=== PATIENT | female | born 1980 | race Asian ===

== ENCOUNTER 2017-11-18 05:35 | Day surgery (SDC) | payer OTHER ==
[2017-11-15 12:09] LABS: MEAN CORPUSCULAR HEMOGLOBIN 20.6 PG (27.0-31.0); MEAN CORPUSCULAR HGB CONC 32.4 % (33.0-36.5); MEAN CORPUSCULAR VOLUME 63.7 FL (78-98); MEAN PLATELET VOLUME 7.8 FL (7.4-10.4); PRE OP HEMATOCRIT 39.2 % (35.0-45.0); PRE OP HEMOGLOBIN 12.7 g/dL (12.0-16.0); PRE OP PLATELET COUNT 376 X10'3 (140-440); RED BLOOD COUNT 6.16 X10'6 (4.20-5.60); RED CELL DISTRIBUTION WIDTH 15.9 % (11.5-14.5)
[2017-11-15 12:22] LABS: HCG SERUM QL NEGATIVE
[2017-11-15 12:23] LABS: ALBUMIN 3.8 G/DL (3.4-5.0); ALBUMIN/GLOBULIN RATIO 0.8 (1.1-1.5); ALKALINE PHOSPHATASE 70 IU/L (46-116); BLOOD UREA NITROGEN 7 MG/DL (7-18); BUN/CREATININE RATIO 9.3 (6.6-38.0); CALCIUM 9.1 MG/DL (8.5-10.1); CHLORIDE 103 MMOL/L (99-107); CREATININE 0.75 MG/DL (0.40-0.90); PRE OP ALT 39 U/L (30-65); PRE OP ANION GAP 9 (8-16); PRE OP AST 23 U/L (10-37); PRE OP BILIRUB, TOTAL 0.5 MG/DL (0.0-1.0); PRE OP GLUCOSE 104 MG/DL (70-104); PRE OP POTASSIUM 3.4 MMOL/L (3.4-5.1); PRE OP SODIUM 141 MMOL/L (135-145); TOTAL CARBON DIOXIDE 29.1 MMOL/L (24-32); TOTAL PROTEIN 8.3 G/DL (6.4-8.2); eGFR 87 ML/MIN
[2017-11-15 12:51] LABS: ANISOCYTOSIS 3+; MICROCYTOSIS 2+; PLATELET ESTIMATE NORMAL; TOTAL CELLS COUNTED 100
[2017-11-15 12:52] LABS: HYPOCHROMASIA 1+; TARGET CELLS 2+
[~2017-11-18] VITALS: Ht 157.5 cm; Wt 59.4 kg
[2017-11-18] VITALS (8 sets, daily range): BP systolic 123–137; BP diastolic 73–86
[~2017-11-18 05:35] MED LIST: ACET-75 PO; HYDR-3965 PO; IBUP-2264; SUMA25TA35 PO; TRAM50TA2 PO; famotidine 20mg tablet PO ONE; ringers solution, lacted 1,000 ML IV SCH
[2017-11-18] MEDS ORDERED: MONO LINYAH (05:57)
[2017-11-18] MEDS ORDERED: LIDOcaine 1% (10mg/ml) 2ml vial ONE (06:05)
[2017-11-18] MEDS ORDERED: BUPIVAcaine 0.5% inj/PF 30 ML ONE (06:39)
[2017-11-18] MEDS ORDERED: sevoflurane 250ml liquid IH ONE (07:20)
[2017-11-18] MEDS ORDERED: fentaNYL/PF 50MCG/1 ML 2ML syringe ONE (07:23)
[2017-11-18] MEDS ORDERED: midazolam 2 mg/2 ml injection ONE (07:23)
[2017-11-18] MEDS ORDERED: LIDOcaine 2% (20mg/ml) 5ml vial ONE (07:33)
[2017-11-18] MEDS ORDERED: propofol inj 20 ML IV ONE (07:33)
[2017-11-18] MEDS ORDERED: dexamethasone sod phosphate 4mg/ml inj. ONE (07:33)
[2017-11-18] MEDS ORDERED: rocuronium 10mg/ml inj IV ONE (07:33)
[2017-11-18] MEDS ORDERED: ringers solution, lacted 1,000 ML IV SCH (07:51)
[2017-11-18] MEDS ORDERED: meperidine/PF 25mg/ml syringe IV PRN ×2 (07:55)
[2017-11-18] MEDS ORDERED: ondansetron/PF 4mg/2ml inj IV PRN (07:55)
[2017-11-18] MEDS ORDERED: proCHLORperazine 10 MG/2 ml inj IV PRN (07:55)
[2017-11-18] MEDS ORDERED: glycopyrrolate 0.2mg/ml inj ONE (07:57)
[2017-11-18] MEDS ORDERED: ondansetron/PF 4mg/2ml inj ONE (07:57)
[2017-11-18] MEDS ORDERED: ketorolac trometh. 30mg/ml inj. ONE (07:57)
[2017-11-18] MEDS ORDERED: neostigmine methylsulfate 1 MG/ML 10ml vial ONE (07:57)
[2017-11-18] MEDS ORDERED: BUPIVAcaine 0.5% inj/PF 30 ml vial IJ ONE (07:59)
[2017-11-18] MEDS: meperidine/PF 25mg/ml syringe IV PRN ×2 (08:41→08:48)
== END 2017-11-18 09:15 | disposition home or self-care (01) ==
LOC: PAS 05:35
PROVIDERS: ATTEND Specialist
DX: N83.8 Other noninflammatory disorders of ovary, fallopian tube and broad ligament (principal); N94.6 Dysmenorrhea, unspecified; N95.0 Postmenopausal bleeding; G43.909 Migraine, unspecified, not intractable, without status migrainosus; Z91.013 Allergy to seafood; Z98.890 Other specified postprocedural states; Z88.3 Allergy status to other anti-infective agents; Z79.899 Other long term (current) drug therapy
CPT/HCPCS: 36415; 58662; 80053; 84703; 85025; 86885; 86900; 86901; J1100; J1885; J2001; J2175; J2250; J2405; J2704; J2710; J3010; J3490; J7120; A7000

== ENCOUNTER 2017-12-10 19:13 | Emergency (ER) | payer OTHER ==
[~2017-12-10] VITALS: Ht 157.5 cm; Wt 62.0 kg
[~2017-12-10 19:13] MED LIST changes: +MONO LINYAH; -SUMA25TA35 PO; -famotidine 20mg tablet PO ONE; -ringers solution, lacted 1,000 ML IV SCH
[2017-12-10] MEDS ORDERED: ketorolac trometh inj. 60 MG/2 ML VIAL IM ONE (19:45)
[2017-12-10 19:57] LABS: CLARITY,URINE CLEAR (Clear); COLOR,URINE YELLOW (Yellow); GLUCOSE, URINE NEGATIVE (Neg); KETONES,URINE NEGATIVE (Neg); LEUKOCYTE ESTERASE ,URINE NEGATIVE (Neg); NITRITES, URINE NEGATIVE (Neg); OCCULT BLOOD,URINE TRACE-LYSED (Neg); PH,URINE 6.5 (4.8-8.0); PROTEIN,URINE NEGATIVE (Neg); UROBILINOGEN,URINE 0.2 E.U/dL (0.2-1.0)
[2017-12-10 20:02] LABS: UA COLLECTION TYPE CLN CATCH MIDSTREAM
[2017-12-10 20:04] LABS: BACTERIA,URINE FEW /HPF (Neg); RBC,URINE 0-2 /HPF (0-2); WBC,URINE 0-4 /HPF (0-4)
[2017-12-10 20:05] LABS: SQUAMOUS EPITHELIAL CELL,UR MODERATE /LPF (FEW)
[2017-12-10] MEDS ORDERED: CEPH500C5 PO (20:07)
[2017-12-10 20:14] VITALS: BP 136/81
== END 2017-12-10 20:15 | disposition home or self-care (01) ==
LOC: ER 19:14
DX: G89.29 Other chronic pain (principal); R10.30 Lower abdominal pain, unspecified; Z91.013 Allergy to seafood; Z79.899 Other long term (current) drug therapy
CPT/HCPCS: 81001; 96372; 99283; J1885

== ENCOUNTER 2018-05-06 19:48 | Emergency (ER) | payer OTHER ==
[~2018-05-06] VITALS: Ht 157.5 cm; Wt 62.5 kg
[~2018-05-06 19:48] MED LIST changes: +CEPH500C5 PO
[2018-05-06 19:55] VITALS: BP 135/70
[2018-05-06] MEDS ORDERED: PHEN-716 PO (20:37)
[2018-05-06] MEDS ORDERED: HYDR-3965 PO (20:37)
[2018-05-06 21:09] LABS: URINE HCG NEGATIVE (NEG)
[2018-05-06 21:16] LABS: CLARITY,URINE SLIGHTLY CLOUDY (Clear); COLOR,URINE YELLOW (Yellow); GLUCOSE, URINE NEGATIVE (Neg); KETONES,URINE NEGATIVE (Neg); LEUKOCYTE ESTERASE ,URINE SMALL (Neg); NITRITES, URINE NEGATIVE (Neg); OCCULT BLOOD,URINE NEGATIVE (Neg); PROTEIN,URINE NEGATIVE (Neg); UA COLLECTION TYPE CLN CATCH MIDSTREAM; UROBILINOGEN,URINE 0.2 E.U/dL (0.2-1.0)
[2018-05-06 21:56] LABS: BACTERIA,URINE FEW /HPF (Neg); RBC,URINE NONE SEEN /HPF (0-2); SQUAMOUS EPITHELIAL CELL,UR FEW /LPF (FEW)
== END 2018-05-06 21:58 | disposition home or self-care (01) ==
LOC: ER 19:49
DX: R10.30 Lower abdominal pain, unspecified (principal); Z88.8 Allergy status to other drugs, medicaments and biological substances; Z91.013 Allergy to seafood
CPT/HCPCS: 81001; 81025; 87088; 99284

== ENCOUNTER 2019-05-31 08:41 | Outpatient (CLI) | payer OTHER ==
[~2019-05-31 08:41] MED LIST changes: -CEPH500C5 PO; +PHEN-716 PO
[2019-05-31 09:32] LABS: CLARITY,URINE CLOUDY (Clear); COLOR,URINE YELLOW (Yellow); GLUCOSE, URINE NEGATIVE (Neg); KETONES,URINE NEGATIVE (Neg); LEUKOCYTE ESTERASE ,URINE NEGATIVE (Neg); NITRITES, URINE NEGATIVE (Neg); OCCULT BLOOD,URINE NEGATIVE (Neg); PH,URINE 6.5 (4.8-8.0); PROTEIN,URINE TRACE mg/dl (Neg); UA COLLECTION TYPE CLN CATCH MIDSTREAM; UROBILINOGEN,URINE 0.2 E.U/dL (0.2-1.0)
[2019-05-31 09:33] LABS: WHITE BLOOD COUNT 8.9 X10'3 (4.5-11.0)
[2019-05-31 09:34] LABS: HEMATOCRIT 36.3 % (35.0-45.0); HEMOGLOBIN 12.3 g/dl (12.0-16.0); MEAN CORPUSCULAR HGB CONC 33.8 g/dL (33.0-36.5); MEAN PLATELET VOLUME 7.3 FL (7.4-10.4); PLATELET COUNT 432 X10'3 (140-440); RED BLOOD COUNT 5.85 X10'6 (4.20-5.60); RED CELL DISTRIBUTION WIDTH 15.9 % (11.5-14.5)
[2019-05-31 09:38] LABS: BACTERIA,URINE 2+ /HPF (Neg); MUCUS STRANDS MODERATE /LPF (Neg); RBC,URINE 0-2 /HPF (0-2); SQUAMOUS EPITHELIAL CELL,UR MODERATE /LPF (FEW); WBC,URINE 0-4 /HPF (0-4)
[2019-05-31 09:52] LABS: ALANINE AMINOTRANSFERASE 54 U/L (12-78); ALBUMIN 3.3 G/DL (3.4-5.0); ALBUMIN/GLOBULIN RATIO 0.7 (1.1-1.5); ALKALINE PHOSPHATASE 105 IU/L (46-116); ANION GAP 6 (8-16); ASPARTATE AMINO TRANSFERASE 20 U/L (10-37); BILIRUBIN,TOTAL 0.4 MG/DL (0.1-1.0); BLOOD UREA NITROGEN 15 MG/DL (7-18); BUN/CREATININE RATIO 17.6 (6.6-38.0); CALCIUM 8.7 MG/DL (8.5-10.1); CHLORIDE 102 MMOL/L (99-107); CHOLESTEROL 266 MG/DL (0-200); CREATININE 0.85 MG/DL (0.40-0.90); GLUCOSE 74 MG/DL (70-104); HDL CHOLESTEROL 66 MG/DL (35-60); LDL CHOLESTEROL 184 MG/DL (50-100); POTASSIUM 4.4 MMOL/L (3.5-5.1); SODIUM 136 MMOL/L (135-145); TOTAL CARBON DIOXIDE 28.4 MMOL/L (24-32); TOTAL PROTEIN 7.8 G/DL (6.4-8.2); TRIGLYCERIDES 116 MG/DL (20-135); eGFR 74 ML/MIN
[2019-05-31 10:09] LABS: TOTAL CELLS COUNTED 100
[2019-05-31 10:10] LABS: HYPOCHROMASIA 1+; MICROCYTOSIS 2+; PLATELET ESTIMATE NORMAL; TARGET CELLS 2+
[2019-05-31 10:11] LABS: SCHISTOCYTES FEW
== END 2019-05-31 23:59 | disposition home or self-care (01) ==
LOC: LAB 08:41
DX: N80.9 Endometriosis, unspecified (principal); R53.83 Other fatigue; Z76.89 Persons encountering health services in other specified circumstances; Z87.891 Personal history of nicotine dependence
CPT/HCPCS: 36415; 80053; 80061; 81001; 84439; 84443; 85025

== ENCOUNTER 2019-06-27 06:00 | Day surgery (SDC) | payer OTHER ==
[~2019-06-27] VITALS: Ht 152.4 cm; Wt 63.6 kg
[~2019-06-27 06:00] MED LIST changes: -IBUP-2264; +IBUP-2697
[2019-06-27 06:08] VITALS: BP 126/78
[2019-06-27] MEDS ORDERED: fentaNYL/PF 50MCG/1 ML 2ML syringe ONE (06:14)
[2019-06-27] MEDS ORDERED: MIDAZolam 5mg/5ml vial ONE (06:15)
[2019-06-27] MEDS ORDERED: ELAG150T PO (06:28)
[2019-06-27] MEDS ORDERED: BACL10TA PO (06:29)
[2019-06-27] MEDS ORDERED: PENT100C9 PO (06:29)
[2019-06-27] MEDS ORDERED: IMIP25TA7 PO (06:31)
[2019-06-27 07:46] VITALS: BP 110/81
[2019-06-27 07:56] VITALS: BP 107/40
[2019-06-27 08:06] VITALS: BP 104/70
[2019-06-27 08:16] VITALS: BP 109/74
== END 2019-06-27 08:22 | disposition home or self-care (01) ==
LOC: GI LAB 06:00
PROVIDERS: ATTEND Internal Medicine Gastroenterology
DX: K62.89 Other specified diseases of anus and rectum (principal)
CPT/HCPCS: 45380; 99152; J2250; J3010; J7040; 99153

== ENCOUNTER 2019-08-02 15:16 | Emergency (ER) | payer OTHER ==
[~2019-08-02] VITALS: Ht 152.4 cm; Wt 65.5 kg
[~2019-08-02 15:16] MED LIST changes: -ACET-75 PO; +BACL10TA PO; +ELAG150T PO; +IMIP25TA7 PO; -MONO LINYAH; +PENT100C9 PO; -PHEN-716 PO; -TRAM50TA2 PO
[2019-08-02 16:26] LABS: BASOPHILS # (AUTO) 0.1 X10'3 (0-0.2); BASOPHILS % (AUTO) 0.8 % (0-1); EOSINOPHILS # (AUTO) 0.3 X10'3 (0-0.9); EOSINOPHILS % (AUTO) 2.7 % (0-6); HEMATOCRIT 37.7 % (35.0-45.0); HEMOGLOBIN 12.7 g/dl (12.0-16.0); LYMPHOCYTES # (AUTO) 3.5 X10'3 (1.1-4.8); MEAN CORPUSCULAR HEMOGLOBIN 20.3 PG (27.0-31.0); MEAN CORPUSCULAR HGB CONC 33.7 g/dL (33.0-36.5); MEAN CORPUSCULAR VOLUME 60.2 FL (78-98); MEAN PLATELET VOLUME 8.6 FL (7.4-10.4); MONOCYTES # (AUTO) 0.5 X10'3 (0-0.9); MONOCYTES % (AUTO) 5.7 % (2-12); NEUTROPHILS # (AUTO) 4.9 X10'3 (1.8-7.7); NEUTROPHILS % (AUTO) 52.8 % (42-75); PLATELET COUNT 405 X10'3 (140-440); RED BLOOD COUNT 6.26 X10'6 (4.20-5.60); RED CELL DISTRIBUTION WIDTH 15.7 % (11.5-14.5); WHITE BLOOD COUNT 9.3 X10'3 (4.5-11.0)
[2019-08-02 16:51] LABS: ALANINE AMINOTRANSFERASE 75 U/L (12-78); ALBUMIN 3.8 G/DL (3.4-5.0); ALBUMIN/GLOBULIN RATIO 0.8 (1.1-1.5); ALKALINE PHOSPHATASE 122 IU/L (46-116); ANION GAP 9 (8-16); ASPARTATE AMINO TRANSFERASE 35 U/L (10-37); BILIRUBIN,TOTAL 0.3 MG/DL (0.1-1.0); BLOOD UREA NITROGEN 13 MG/DL (7-18); BUN/CREATININE RATIO 16.5 (6.6-38.0); CALCIUM 9.3 MG/DL (8.5-10.1); CHLORIDE 103 MMOL/L (99-107); CREATININE 0.79 MG/DL (0.40-0.90); GLUCOSE 111 MG/DL (70-104); LIPASE 115 U/L (73-393); PLATELET ESTIMATE NORMAL; POTASSIUM 3.7 MMOL/L (3.5-5.1); SODIUM 143 MMOL/L (135-145); TOTAL CARBON DIOXIDE 31.2 MMOL/L (24-32); TOTAL PROTEIN 8.5 G/DL (6.4-8.2); eGFR 81 ML/MIN
[2019-08-02 16:57] LABS: ANISOCYTOSIS 1+; MICROCYTOSIS 2+; POIKILOCYTOSIS 1+; POLYCHROMASIA 1+
[2019-08-02 16:58] LABS: SCHISTOCYTES 1+; SPHEROCYTES 1+; STOMATOCYTES 1+; TARGET CELLS 2+
[2019-08-02 17:11] LABS: URINE HCG NEGATIVE (NEG)
[2019-08-02 17:12] LABS: GLUCOSE, URINE NEGATIVE (Neg); KETONES,URINE NEGATIVE (Neg); LEUKOCYTE ESTERASE ,URINE NEGATIVE (Neg); NITRITES, URINE NEGATIVE (Neg); OCCULT BLOOD,URINE NEGATIVE (Neg); PROTEIN,URINE NEGATIVE (Neg); UROBILINOGEN,URINE 0.2 E.U/dL (0.2-1.0)
[2019-08-02 17:14] LABS: CLARITY,URINE CLEAR (Clear); COLOR,URINE YELLOW (Yellow); UA COLLECTION TYPE CLN CATCH MIDSTREAM
[2019-08-02 17:47] VITALS: BP 120/81
== END 2019-08-02 17:48 | disposition home or self-care (01) ==
LOC: ER 15:16
DX: R10.30 Lower abdominal pain, unspecified (principal); G89.29 Other chronic pain; Z91.013 Allergy to seafood; Z88.8 Allergy status to other drugs, medicaments and biological substances; Z79.899 Other long term (current) drug therapy
CPT/HCPCS: 36415; 80053; 81003; 81025; 83690; 85025; 99283

== ENCOUNTER 2019-08-24 10:52 | Outpatient (CLI) | payer OTHER ==
[2019-08-24 14:28] LABS: OCCULT BLOOD STOOL NEGATIVE (Neg)
== END 2019-08-24 23:59 | disposition home or self-care (01) ==
LOC: LAB 10:52
PROVIDERS: ATTEND Internal Medicine Gastroenterology
DX: K92.2 Gastrointestinal hemorrhage, unspecified (principal)
CPT/HCPCS: 82272

== ENCOUNTER 2019-10-19 09:42 | Outpatient (CLI) | payer OTHER | END 2019-10-21 23:59 | disposition home or self-care (01) | LOC: RAD 09:42 | PROVIDERS: ATTEND Family Medicine | DX: G62.9 Polyneuropathy, unspecified (principal) | CPT/HCPCS: 72110; 72220 ==

== ENCOUNTER 2019-12-03 09:23 | Outpatient (CLI) | payer OTHER ==
[2019-12-03 10:06] LABS: BASOPHILS # (AUTO) 0.1 X10'3 (0-0.2); BASOPHILS % (AUTO) 1.8 % (0-1); EOSINOPHILS # (AUTO) 0.2 X10'3 (0-0.9); EOSINOPHILS % (AUTO) 2.1 % (0-6); HEMATOCRIT 40.2 % (35.0-45.0); HEMOGLOBIN 13.4 g/dl (12.0-16.0); LYMPHOCYTES # (AUTO) 1.2 X10'3 (1.1-4.8); LYMPHOCYTES % (AUTO) 15.6 % (21-51); MEAN CORPUSCULAR HEMOGLOBIN 19.7 PG (27.0-31.0); MEAN CORPUSCULAR HGB CONC 33.4 g/dL (33.0-36.5); MEAN PLATELET VOLUME 8.5 FL (7.4-10.4); MONOCYTES # (AUTO) 0.9 X10'3 (0-0.9); MONOCYTES % (AUTO) 11.4 % (2-12); NEUTROPHILS # (AUTO) 5.3 X10'3 (1.8-7.7); NEUTROPHILS % (AUTO) 69.1 % (42-75); PLATELET COUNT 414 X10'3 (140-440); RED BLOOD COUNT 6.82 X10'6 (4.20-5.60); RED CELL DISTRIBUTION WIDTH 16.4 % (11.5-14.5); WHITE BLOOD COUNT 7.7 X10'3 (4.5-11.0)
[2019-12-03 11:16] LABS: TOTAL CELLS COUNTED 100
[2019-12-03 11:17] LABS: ANISOCYTOSIS 1+; PLATELET ESTIMATE NORMAL
[2019-12-03 11:18] LABS: MICROCYTOSIS 2+; POLYCHROMASIA 1+; TARGET CELLS 1+
== END 2019-12-03 23:59 | disposition home or self-care (01) ==
LOC: LAB 09:23
PROVIDERS: ATTEND Family Medicine
DX: G62.9 Polyneuropathy, unspecified (principal); E03.9 Hypothyroidism, unspecified
CPT/HCPCS: 82607; 82746; 83540; 83550; 84439; 84443; 85025

== ENCOUNTER 2020-04-08 10:14 | Outpatient (CLI) | payer OTHER ==
[2020-04-08 10:52] LABS: BASOPHILS # (AUTO) 0.1 X10'3 (0-0.2); BASOPHILS % (AUTO) 1.1 % (0-1); EOSINOPHILS # (AUTO) 0.2 X10'3 (0-0.9); EOSINOPHILS % (AUTO) 2.5 % (0-6); HEMATOCRIT 39.5 % (35.0-45.0); HEMOGLOBIN 13.2 g/dl (12.0-16.0); LYMPHOCYTES # (AUTO) 2.8 X10'3 (1.1-4.8); LYMPHOCYTES % (AUTO) 28.6 % (21-51); MEAN CORPUSCULAR HEMOGLOBIN 20.3 PG (27.0-31.0); MEAN CORPUSCULAR HGB CONC 33.6 g/dL (33.0-36.5); MEAN CORPUSCULAR VOLUME 60.5 FL (78-98); MEAN PLATELET VOLUME 7.4 FL (7.4-10.4); MONOCYTES # (AUTO) 0.7 X10'3 (0-0.9); MONOCYTES % (AUTO) 7.1 % (2-12); NEUTROPHILS # (AUTO) 5.9 X10'3 (1.8-7.7); NEUTROPHILS % (AUTO) 60.7 % (42-75); PLATELET COUNT 426 X10'3 (140-440); RED BLOOD COUNT 6.52 X10'6 (4.20-5.60); RED CELL DISTRIBUTION WIDTH 16.1 % (11.5-14.5); WHITE BLOOD COUNT 9.7 X10'3 (4.5-11.0)
[2020-04-08 10:58] LABS: CLARITY,URINE CLEAR (Clear); COLOR,URINE YELLOW (Yellow); GLUCOSE, URINE NEGATIVE (Neg); KETONES,URINE NEGATIVE (Neg); LEUKOCYTE ESTERASE ,URINE NEGATIVE (Neg); NITRITES, URINE NEGATIVE (Neg); OCCULT BLOOD,URINE NEGATIVE (Neg); PH,URINE 7.5 (4.8-8.0); PROTEIN,URINE NEGATIVE (Neg); UROBILINOGEN,URINE 0.2 E.U/dL (0.2-1.0)
[2020-04-08 11:03] LABS: UA COLLECTION TYPE CLN CATCH MIDSTREAM
[2020-04-08 11:12] LABS: ALANINE AMINOTRANSFERASE 69 U/L (12-78); ALBUMIN 4.1 G/DL (3.4-5.0); ALBUMIN/GLOBULIN RATIO 0.9 (1.1-1.5); ALKALINE PHOSPHATASE 110 IU/L (46-116); ANION GAP 10 (8-16); ASPARTATE AMINO TRANSFERASE 36 U/L (10-37); BILIRUBIN,TOTAL 0.5 MG/DL (0.1-1.0); BLOOD UREA NITROGEN 10 MG/DL (7-18); BUN/CREATININE RATIO 11.6 (6.6-38.0); CALCIUM 9.5 MG/DL (8.5-10.1); CHLORIDE 99 MMOL/L (99-107); CHOL/HDL RATIO 3.9 (0.00-4.99); CHOLESTEROL 270 MG/DL (0-200); CREATININE 0.86 MG/DL (0.40-0.90); GLUCOSE 98 MG/DL (70-104); HDL CHOLESTEROL 70 MG/DL (35-60); LDL CHOLESTEROL 167 MG/DL (50-100); POTASSIUM 4.1 MMOL/L (3.5-5.1); SODIUM 137 MMOL/L (135-145); TOTAL PROTEIN 8.7 G/DL (6.4-8.2); TRIGLYCERIDES 199 MG/DL (20-135); eGFR 73 ML/MIN
[2020-04-08 11:24] LABS: RHEUM FACTOR QUAL REFLEX TITER NEGATIVE (Neg)
[2020-04-08 11:32] LABS: LARGE PLATELETS FEW; PLATELET ESTIMATE NORMAL; POLYCHROMASIA 1+
[2020-04-08 11:33] LABS: ANISOCYTOSIS 1+; HYPOCHROMASIA 2+; MICROCYTOSIS 2+; TARGET CELLS 1+
== END 2020-04-08 23:59 | disposition home or self-care (01) ==
LOC: LAB 10:14
PROVIDERS: ATTEND Family Medicine
DX: E03.9 Hypothyroidism, unspecified (principal); R10.2 Pelvic and perineal pain
CPT/HCPCS: 80053; 80061; 81003; 84439; 84443; 85025; 85651; 86038; 86430

== ENCOUNTER 2020-04-09 11:03 | Outpatient (CLI) | payer OTHER ==
[2020-04-09 11:58] LABS: % IRON SATURATION 35 % (11-46); IRON 106 UG/DL (49-151); TOTAL IRON BINDING CAPACITY 306 UG/DL (259-388)
== END 2020-04-09 23:59 | disposition home or self-care (01) ==
LOC: LAB 11:03
PROVIDERS: ATTEND Family Medicine
DX: E61.1 Iron deficiency (principal)
CPT/HCPCS: 36415; 83540; 83550

== ENCOUNTER 2021-01-08 12:53 | Emergency (ER) | payer MEDICAID ==
[~2021-01-08] VITALS: Ht 157.5 cm; Wt 68.2 kg
[2021-01-08 13:28] VITALS: BP 132/75
[2021-01-08 13:58] LABS: HEMOGLOBIN 11.9 g/dl (12.0-16.0); MEAN CORPUSCULAR HEMOGLOBIN 20.5 PG (27.0-31.0); RED BLOOD COUNT 5.78 X10'6 (4.20-5.60)
[2021-01-08 14:00] LABS: MEAN CORPUSCULAR HGB CONC 32.9 g/dL (33.0-36.5); MEAN CORPUSCULAR VOLUME 62.4 FL (78-98); MEAN PLATELET VOLUME 7.3 FL (7.4-10.4); PLATELET COUNT 480 X10'3 (140-440); RED CELL DISTRIBUTION WIDTH 17.5 % (11.5-14.5)
[2021-01-08 14:10] LABS: ALANINE AMINOTRANSFERASE 42 U/L (12-78); ALBUMIN 3.8 G/DL (3.4-5.0); ALBUMIN/GLOBULIN RATIO 0.8 (1.1-1.5); ALKALINE PHOSPHATASE 81 IU/L (46-116); ANION GAP 7 (8-16); ASPARTATE AMINO TRANSFERASE 21 U/L (10-37); BILIRUBIN,TOTAL 0.4 MG/DL (0.1-1.0); BLOOD UREA NITROGEN 9 MG/DL (7-18); BUN/CREATININE RATIO 10.8 (6.6-38.0); CALCIUM 9.7 MG/DL (8.5-10.1); CHLORIDE 105 MMOL/L (99-107); CREATININE 0.83 MG/DL (0.40-0.90); GLUCOSE 86 MG/DL (70-104); SODIUM 140 MMOL/L (135-145); TOTAL CARBON DIOXIDE 27.6 MMOL/L (24-32); TOTAL PROTEIN 8.4 G/DL (6.4-8.2); eGFR 76 ML/MIN
[2021-01-08 14:21] LABS: URINE HCG NEGATIVE (NEG)
[2021-01-08 14:28] LABS: TOTAL CELLS COUNTED 100
[2021-01-08 14:29] LABS: URINE AMPHETAMINE SCREEN NEGATIVE (Neg); URINE BARBITUATE SCREEN NEGATIVE (Neg); URINE BENZODIAZEPINES SCREEN NEGATIVE (Neg); URINE CANNABINOID SCREEN NEGATIVE (Neg); URINE COCAINE SCREEN NEGATIVE (Neg); URINE METHADONE SCREEN NEGATIVE (Neg); URINE OPIATE SCREEN NEGATIVE (Neg); URINE PHENCYCLIDINE SCREEN NEGATIVE (Neg)
[2021-01-08 14:38] LABS: ANISOCYTOSIS 1+; MICROCYTOSIS 2+; PLATELET ESTIMATE INCREASED; TARGET CELLS 2+
[2021-01-08 14:39] LABS: LARGE PLATELETS FEW; POLYCHROMASIA 1+
== END 2021-01-08 15:21 | disposition home or self-care (01) ==
LOC: ER 12:53
DX: R00.2 Palpitations (principal); Z87.440 Personal history of urinary (tract) infections; Z98.890 Other specified postprocedural states; Z88.8 Allergy status to other drugs, medicaments and biological substances; Z91.013 Allergy to seafood; Z79.899 Other long term (current) drug therapy
CPT/HCPCS: 36415; 80053; 80305; 81025; 84443; 85007; 85025; 93005; 99284

== ENCOUNTER 2021-02-23 08:30 | Day surgery (SDC) | payer MEDICAID ==
[2021-02-16 11:47] LABS: CLARITY,URINE CLOUDY (Clear); COLOR,URINE YELLOW (Yellow); GLUCOSE, URINE NEGATIVE (Neg); KETONES,URINE NEGATIVE (Neg); LEUKOCYTE ESTERASE ,URINE SMALL (Neg); NITRITES, URINE NEGATIVE (Neg); OCCULT BLOOD,URINE NEGATIVE (Neg); PH,URINE 6.5 (4.8-8.0); PROTEIN,URINE NEGATIVE (Neg); UROBILINOGEN,URINE 0.2 E.U/dL (0.2-1.0)
[2021-02-16 11:49] LABS: MEAN CORPUSCULAR HEMOGLOBIN 20.7 PG (27.0-31.0); RED CELL DISTRIBUTION WIDTH 17.6 % (11.5-14.5)
[2021-02-16 11:51] LABS: MEAN CORPUSCULAR HGB CONC 32.7 g/dL (33.0-36.5); MEAN CORPUSCULAR VOLUME 63.3 FL (78-98); MEAN PLATELET VOLUME 7.7 FL (7.4-10.4); PRE OP HEMATOCRIT 38.6 % (35.0-45.0); PRE OP HEMOGLOBIN 12.6 g/dL (12.0-16.0); PRE OP PLATELET COUNT 528 X10'3 (140-440)
[2021-02-16 11:52] LABS: UA COLLECTION TYPE NON-SPECIFIED
[2021-02-16 11:53] LABS: BACTERIA,URINE 2+ /HPF (Neg); MUCUS STRANDS FEW /LPF (Neg); RBC,URINE 0-2 /HPF (0-2); SQUAMOUS EPITHELIAL CELL,UR MODERATE /LPF (FEW); WBC,URINE 0-4 /HPF (0-4)
[2021-02-16 12:02] LABS: PRE OP PROTIME 10.3 SECONDS (9.0-12.0)
[2021-02-16 12:03] LABS: ALBUMIN 3.7 G/DL (3.4-5.0); ALBUMIN/GLOBULIN RATIO 0.8 (1.1-1.5); ALKALINE PHOSPHATASE 87 IU/L (46-116); BLOOD UREA NITROGEN 10 MG/DL (7-18); BUN/CREATININE RATIO 10.8 (6.6-38.0); CALCIUM 9.4 MG/DL (8.5-10.1); CHLORIDE 102 MMOL/L (99-107); CREATININE 0.93 MG/DL (0.40-0.90); PRE OP ALT 28 U/L (30-65); PRE OP ANION GAP 12 (8-16); PRE OP AST 17 U/L (10-37); PRE OP BILIRUB, TOTAL 0.4 MG/DL (0.0-1.0); PRE OP GLUCOSE 155 MG/DL (70-104); PRE OP POTASSIUM 4.3 MMOL/L (3.4-5.1); PRE OP SODIUM 140 MMOL/L (135-145); TOTAL CARBON DIOXIDE 26.2 MMOL/L (24-32); TOTAL PROTEIN 8.5 G/DL (6.4-8.2); eGFR 66 ML/MIN
[2021-02-16 12:13] LABS: HCG SERUM QL NEGATIVE
[2021-02-16 13:01] LABS: ANISOCYTOSIS 1+; LARGE PLATELETS FEW; MICROCYTOSIS 2+; PLATELET ESTIMATE INCREASED; POLYCHROMASIA 1+; TARGET CELLS 2+; TOTAL CELLS COUNTED 100
[2021-02-16 13:02] LABS: STOMATOCYTES 1+
[2021-02-23] VITALS (7 sets, daily range): BP systolic 115–138; BP diastolic 68–91
[~2021-02-23] VITALS: Ht 157.5 cm; Wt 73.0 kg
[~2021-02-23 08:30] MED LIST changes: +ACET-1025 PO; -ELAG150T PO; -HYDR-3965 PO; -IBUP-2697; +INDO50CA96 PO; +LEVO25CA4 PO; -PENT100C9 PO; +ceFOXitin 2GM-NS 100mL ADDvant 100 ML IV ONE; +famotidine 20mg tablet PO ONE; +ringers solution, lacted 1,000 ML IV SCH
[2021-02-23] MEDS ORDERED: fentaNYL/PF 50MCG/1 ML 2ML syringe IV PRN ×2 (09:00)
[2021-02-23] MEDS ORDERED: ondansetron/PF 4mg/2ml inj IV PRN (09:00)
[2021-02-23] MEDS ORDERED: morphine 2 MG/ML inj. syringe IV PRN (09:00)
[2021-02-23] MEDS ORDERED: ringers solution, lacted 1,000 ML IV SCH (09:00)
[2021-02-23] MEDS ORDERED: hydrALAZINE 20mg/ml inj. IV PRN (09:00)
[2021-02-23] MEDS ORDERED: morphine 4 MG/ML inj SYRINge IV PRN (09:00)
[2021-02-23] MEDS ORDERED: labetalol 20mg/4ml (5mg/ml) syringe IV PRN (09:00)
[2021-02-23] MEDS ORDERED: BUPIVAcaine/PF 2.5 mg/ml (0.25%) 30ml vial ONE (10:21)
[2021-02-23] MEDS ORDERED: midazolam 1 mg/ML 2ml injection ONE (10:29)
[2021-02-23] MEDS ORDERED: fentaNYL/PF 50MCG/1 ML 2ML syringe ONE (10:29)
[2021-02-23] MEDS ORDERED: propofol inj 20 ML IV ONE (10:30)
[2021-02-23] MEDS ORDERED: LIDOcaine 2% (20mg/ml) 5ml vial ONE (10:30)
[2021-02-23] MEDS ORDERED: rocuronium 10mg/ml inj IV ONE (10:31)
[2021-02-23] MEDS ORDERED: ondansetron/PF 4mg/2ml inj ONE (10:31)
[2021-02-23] MEDS ORDERED: dexamethasone sod phosphate 10mg/ml inj ONE (10:37)
[2021-02-23] MEDS ORDERED: glycopyrrolate 0.2mg/ml inj ONE (10:37)
[2021-02-23] MEDS ORDERED: neostigmine methylsulfate 1 MG/ML 10ml vial ONE (10:37)
[2021-02-23] MEDS ORDERED: sevoflurane 250ml liquid IH ONE (10:37)
[2021-02-23] MEDS ORDERED: sugammadex 200mg/2ml injection IV ONE (11:22)
--- NOTE | 2021-02-23 11:40 | NUR ---
[place] [facility] WITH [place], REPORT GIVEN BY DR. PORTER, PT AWAKE, VSS, DENIES PAIN, PIV 20G L HAND, BANDAIDS TO ABD-CDI, SCDS ON.
--- NOTE | 2021-02-23 12:40 | NUR ---
PT ABLE TO BE UP AND GETTING DRESSED, PAIN MUCH BETTER WHEN UP AND MOVING, VSS, PIV 20G D/DI HAVE REVIEWED D/C ORDERS WITH PATIENT AND HIS FRIEND AND THEY HAVE VERBALIZED UNDERSTANDING. PATIENT D/C HOME WITH ALL BELONGINGS AND FRIEND GAVE TRANSPORT
== END 2021-02-23 12:40 | disposition home or self-care (01) ==
LOC: PRE-OP 08:30 → PAS 12:40
PROVIDERS: ATTEND Obstetrics & Gynecology
DX: R10.2 Pelvic and perineal pain (principal); N80.0 Endometriosis of uterus; Z20.822 Contact with and (suspected) exposure to COVID-19; I10 Essential (primary) hypertension; D64.9 Anemia, unspecified; Z91.013 Allergy to seafood; Z88.8 Allergy status to other drugs, medicaments and biological substances; Z79.899 Other long term (current) drug therapy; Z98.890 Other specified postprocedural states; Z83.3 Family history of diabetes mellitus
CPT/HCPCS: 36415; 58662; 80053; 81001; 82948; 84703; 85025; 85610; 85730; 86885; 86900; 86901; 87077; 87088; 87186; C1758; C9399; J0694; J1100; J2001; J2250; J2270; J2405; J2704; J2710; J3010; J3490; U0003; 85007; A4618; J7120